=== PATIENT | male | born 1985 | race Caucasian/White ===

== ENCOUNTER 2018-11-09 21:34 | Emergency (ER) | payer OTHER ==
[2018-11-09 21:50] VITALS: BP 146/76
[2018-11-09] MEDS ORDERED: TETRACAINE HCL 0.5% OPH SOLN 4 ML OS ONE (23:56)
[2018-11-10] MEDS ORDERED: KETOROLAC TROMETHAMINE 0.45% 4 DROP/0.4 ML DROPERETTE OS ONE (00:16)
[2018-11-10] MEDS ORDERED: ERYTHROMYCIN 0.5% OPH OINT 1 GM UNIT DOSE OS ONE (00:17)
--- NOTE | 2018-11-10 01:03 | ER Document Report ---
Entered by VANDANA ELLIS SCRIBE 11/10/18 0005 Acting as scribe for:TAY DEL CID DO ED Eye Complaint - General Chief Complaint: Eye Pain Stated Complaint: SCRATCH IN LEFT EYE Time Seen by Provider: 11/09/18 23:49 Primary Care Provider: VIDHYA SAENZ MD [ACTIVE STAFF] - 11/10/18 Information source: Patient Notes: 33-year-old male who presents to the emergency department today with complaints of left eye pain. Patient states that around 1900 this evening he was bending down as his daughter was reaching her hand up and she hit him in the left eye with her finger. Patient states initially it was somewhat painful but tolerable. He states he believes he "rubbed it too much" though because he has had increased pain in the eye. Patient denies any eye contact usage. TRAVEL OUTSIDE OF THE [place] IN LAST 30 DAYS: No Past Medical History - General Information source: Patient - Social History Smoking Status: Never Smoker Cigarette use (# per day): No Frequency of alcohol use: None Drug Abuse: None Lives with: Family Family History: Reviewed & Not Pertinent Review of Systems - Review of Systems Constitutional: No symptoms reported EENT: See HPI, Eye pain - left Cardiovascular: No symptoms reported Respiratory: No symptoms reported Gastrointestinal: No symptoms reported Genitourinary: No symptoms reported Male Genitourinary: No symptoms reported Musculoskeletal: No symptoms reported Skin: No symptoms reported Hematologic/Lymphatic: No symptoms reported Neurological/Psychological: No symptoms reported -: Yes All other systems reviewed and negative Physical Exam - Vital signs Vitals: Temp Pulse Resp BP Pulse Ox 97.8 F 48 L 12 146/76 H 99 11/09/18 21:49 11/09/18 21:49 11/09/18 21:49 11/09/18 21:49 11/09/18 21:49 - Notes Notes: Physical Exam: General: Alert, appears well. HEENT: Normocephalic. Atraumatic. Extraocular movements intact. Oropharynx clear. Fluorescein uptake at the 8 o'clock position. 0.5 cm square shaped corneal abrasion. Irregular pupil consistent with traumatic iritis. Neck: Supple. Respiratory: No respiratory distress. Abdominal: Normal Inspection. No distension. Extremities: Moves all four extremities. Neurological: Normal cognition. AAOx4. Normal speech. Psychological: Normal affect. Normal Mood. Skin: Warm. Dry. Normal color. Course - Re-evaluation Re-evalutation: 11/10/18 01:02 Patient is a pleasant 33-year-old male who was child accidentally poked him in the eye. Patient has a corneal abrasion and traumatic iritis. He will be discharged home with erythromycin ointment and ketorolac eyedrops. Patient does not wear contact lenses. He is instructed to follow-up with an [employer] in the morning. Patient is active duty [place] If [place], he is to follow-up at the eye clinic in [facility]. He is understanding and agreeable to this plan. Stable for discharge. No other complaints or issues. - Vital Signs Vital signs: Temp Pulse Resp BP Pulse Ox 97.8 F 48 L 12 146/76 H 99 11/09/18 21:49 11/09/18 21:49 11/09/18 21:49 11/09/18 21:49 11/09/18 21:49 Procedures - Eye Procedure Left Alcaine Drops Administered: Yes Acular drops administered: Left Fluorescein applied: Left Antibiotic Oinment/Drps Admin: Left eye Slit lamp used: No Discharge - Discharge Clinical Impression: Iritis Cornea abrasion Qualifiers: Encounter type: initial encounter Laterality: left Qualified Code(s): S05.02XA - Injury of conjunctiva and corneal abrasion without foreign body, left eye, initial encounter Condition: Stable Disposition: HOME, SELF-CARE Instructions: Corneal Abrasion ([facility]), Iritis ([facility]) Additional Instructions: Please follow-up with an [employer] in the morning. If you notice any worsening pain or change in your vision, please return. Prescriptions: Erythromycin Base [Erythromycin Oph 1 gm Oint Ud] 1 applic OP QID #1 tube Ketorolac Tromethamine 0.45% [Acuvail 0.45% Oph Soln 0.4 ml/Dropperette] 1 drop OD BID #1 droperette Referrals: VIDHYA SAENZ MD [ACTIVE STAFF] - 11/10/18 Scribe Attestation: 11/10/18 01:02 I personally performed the services described in the documentation, reviewed and edited the documentation which was dictated to the scribe in my presence, and it accurately records my words and actions. I personally performed the services described in the documentation, reviewed and edited the documentation which was dictated to the scribe in my presence, and it accurately records my words and actions.
== END 2018-11-10 02:52 | disposition home or self-care (01) ==
LOC: ER 21:34
DX: S05.02XA Injury of conjunctiva and corneal abrasion without foreign body, left eye, initial encounter (principal); H20.9 Unspecified iridocyclitis; H57.12 Ocular pain, left eye; W51.XXXA Accidental striking against or bumped into by another person, initial encounter
CPT/HCPCS: 99283; J3490